=== PATIENT | female | born 1980 | race Caucasian/White ===

== ENCOUNTER 2019-01-27 19:18 | Inpatient (IN) | payer OTHER ==
[2019-01-27] MEDS ORDERED: Lactated Ringers 1000 ML Bag* 1,000 ML IV ONE ×2 (19:48→21:36)
--- NOTE | 2019-01-27 19:58 | HP ---
General Information - Reason for Visit IUP at 41 in early active labor with moderate bright red bleeding - General Information Maternal Age: 38 Grav: 1 Para: 0 SAB: 0 IEA: 0 Estimated Due Date: 01/30/19 Determined By: LMP Gestational Age in Weeks/Days: 39-7 Maternal Blood Type and Rh: O Positive - Results this Serology/RPR Result: Non-Reactive Rubella Result: Immune HBsAg Result: Negative HIV Result: Negative GBS Culture Result: Negative Past Medical History Delivery History: See Records Delivery History Comment: Primip Pertinent Past Medical History: See Records Past Medical History Comment: Allergies, food: legumes/bananas - anaphylaxis Pertinent Past Surgical History: None Pertinent Family History: See Records Family History Comment: Father - HTN. , sepsis s/p routine colonoscopy Mother - HTN PGM - , heart disease PGF - HTN, asthma. , [place] MGM - , lung cancer MGF - , lung cancer - Antepartal Records Antepartal Records: Reviewed, Complicated by: - GDM - A1 Review of Systems Constitutional: Uncomfortable CV Complaint: No Respiratory: Shortness of Breath: No Gastrointestinal: No Nausea/Vomiting, Normal Bowel Movement Genitourinary: Bleeding Musculoskeletal: No Complaint, No Epigastric Pain Neurological: No Headache, No Visual Changes Movement: Normal Exam Allergies/Adverse Reactions: Allergies LEGUMES Allergy (Severe, Uncoded 12/08/12 17:09) Anaphylatic Shock BP 131/75 HR 63 T 98.4 RR 18 SpO2 99% on RA - Measurements Height: 5 ft 4 in Weight: 141 lb Body Mass Index (BMI): 24.2 Pre- Weight: 110 lb - Exam Breast: Breast Exam Deferred CVA: No CVA Tenderness Extremities: No Edema Heart: Normal Rhythm/Heart Sounds HEENT: No Significant Findings Lungs: Clear Bilaterally Rectal: Rectal Exam Deferred Reflexes: DTR 2+ Thyroid: No Thyromegaly - Abdominal Exam Abdomen Exam: Non-Tender - between UCs, Fundal Height Consistent with Dates - Ultrasound/Biophysical Profile Ultrasound Status: Not Done Targeted Exam Findings See L&D Outpatient Visit Provider Note for Findings: N/A Estimated Weight: EFW 7.5 lbs by Cristina Cervical Exam: 1cm Effacement: 90% Station: -1 Presenting Part: Vertex Membrane Status: Intact Sterile Speculum Exam: Not done Bleeding/Discharge: Moderate bleeding EFM Findings - External Monitor Findings Baseline Heart Rate: 125 External Monitor Findings: Accelerations Present, No Pattern of Variable or Late Decelerations - isolated variable down to 90bpm. Recovered. Moderate variability maintained, Variability Moderate, Baseline Stable External Monitor Findings Comment: Cat II FHT, doubt metabolic acidemia. Bears close watching Contractions: Regular Contraction Frequency: q 3 min Assessment/Plan - Assessment IUP at 39-4/7 in early active labor Cat II FHT Moderate vaginal bleeding GDM - A1 - Plan Plan Comment: P: Admit. Pt agrees to IV placement and fluids. Close monitoring of maternal/ status in presence of bleeding. Dr. Garcia aware of pt presence and condition. - Date/Time of Admission Date of Admission: 01/27/19 Time of Admission: 19:55
[2019-01-27] MEDS ORDERED: Lactated Ringers 1000 ML Bag* 1,000 ML IV SCH ×3 (20:00→22:00)
[2019-01-27 20:31] LABS: ABS Lymphocytes 1.8 10^3/ul (1.0-4.8); ABS Monocytes 0.8 10^3/ul (0-0.8); ABS Neutrophils 11.1 10^3/ul (1.5-7.7); Eosinophil % 0.1 %; Hematocrit 35 % (35-47); Hemoglobin 11.8 g/dL (12.0-16.0); Lymphocyte % 13.4 %; Mean Corpuscular HGB Conc 34 g/dL (31-36); Mean Corpuscular Hemoglobin 30 pg (27-31); Mean Corpuscular Volume 89 fL (80-97); Mean Platelet Volume 9.2 fL (7.4-10.4); Platelet Count 215 10^3/uL (150-450); Red Blood Count 3.88 10^6 /uL (3.70-4.87); Red Cell Distribution Width 15 % (10.5-15); White Blood Count 13.8 10^3/uL (3.5-10.8)
[2019-01-27 20:39] LABS: Platelet Count 215 10^3/ul (150-450)
[2019-01-27] MEDS ORDERED: OBEPIDURAL* 250 ML EPIDURAL ONE (20:41)
--- NOTE | 2019-01-27 20:43 | PN ---
Progress Note - Progress Note Date of Service: 01/27/19 Note: Quick note: Pt much more uncomfortable. Requesting epidural analgesia. Labs sent. IV fluid bolus running. VE: 3cm/90%/vtx -1, intact BOW. FHT 125bpm. Moderate variability. +Accels. No decels. Impression: Cat I FHT. Anesthesia paged for consult
[2019-01-27 20:44] LABS: Activated Partial Thrombo Time 30.1 seconds (26.0-36.3); Fibrinogen 414.7 mg/dL (110.8-404.3); INR 0.85 (0.82-1.09)
[2019-01-27 21:02] LABS: Schistocytes ABSENT
[2019-01-27] MEDS ORDERED: Lidocaine 2% EPI 1:200000 MPF*10-20 ML VIAL ONE (21:26)
[2019-01-27] MEDS ORDERED: Phenylephrine 40 MCG/ML SYRINGE IV PUSH PRN ×2 (21:36)
[2019-01-27] MEDS ORDERED: Sodium Citrate/Citric Acid* 15 ML UDC PO PRN (21:36)
[2019-01-27] MEDS ORDERED: Lactated Ringers 1000 ML Bag* 500 ML IV PRN ×2 (21:36)
[2019-01-27] MEDS ORDERED: Famotidine TAB* 20 MG PO PRN (21:36)
[2019-01-27] MEDS ORDERED: OBEPIDURAL* 250 ML EPIDURAL SCH (22:00)
--- NOTE | 2019-01-27 23:57 | PN ---
Progress Note - Progress Note Date of Service: 01/27/19 Note: S: Paged to bedside to review FHT. Pt very comfortable with epidural. Currently in a left lateral position, O2 by mask and increased IV fluids running O: BP 107/65 HR 58bpm FHT baseline 135bpm. Moderate variability. Variable decel down to 70bpm at 2320 and again at 2324 then recovered to baseline x several contractions. At 2336 isolated late decel noted. Then FHT maintained through several contractions. UCs q 3-4, moderate bloody show present with exam. Small clot noted on glove < 1cm x 0.5cm VE: 4-5/100%/vtx -1, intact BOW A: IUP at 39-4/7 in labor Category II FHT P: Continue O2 by mask, IV fluids and close monitoring of maternal/ status. Consider amniotomy and MD consult PRN persistent Category II FHT
--- NOTE | 2019-01-28 00:21 | PN ---
Progress Note - Progress Note Date of Service: 01/28/19 Note: Quick Note Category II tracing persists with a combination of deep variables and occasional lates. AROM to bloody fluid. Recommend pLTCS. Pt and FOB agree. Dr. Garcia from OB, Dr. Duff from anesthesia, and Dr. Arriaga from neonatology paged for case.
[2019-01-28] MEDS ORDERED: Chloroprocaine 3%* 20 ML VIAL ONE (00:23)
[2019-01-28] MEDS ORDERED: Lidocaine 2% EPI 1:200000 MPF*10-20 ML VIAL ONE (00:23)
[2019-01-28] MEDS ORDERED: OXYTOCIN* 10 UNITS/ML 1 ML VIAL ONE (00:23)
[2019-01-28] MEDS ORDERED: Phenylephrine 40 MCG/ML SYRINGE ONE (00:23)
[2019-01-28] MEDS ORDERED: Morphine PF AMP (0.5MG/ML)* 5 MG/10 ML AMP ONE (00:23)
[2019-01-28] MEDS ORDERED: fentaNYL* 50 MCG/ML 2 ML VIAL (100 MCG VIAL) ONE ×2 (00:23→00:48)
[2019-01-28] MEDS ORDERED: ceFOXitin 2 GM IVPREMIX* 2 GM/50 ML BAG IVPB ONE (00:33)
[2019-01-28] MEDS ORDERED: ceFOXitin 2 GM IVPREMIX* 2 GM/50 ML BAG ONE (00:33)
[2019-01-28] MEDS ORDERED: Naloxone* 0.4 MG/ML 1 ML VIAL IV PRN ×2 (01:08→01:09)
[2019-01-28] MEDS ORDERED: Ondansetron INJ* 2 MG/ML VIAL IV PRN ×2 (01:08→01:09)
[2019-01-28] MEDS ORDERED: Scopolamine 1.5 mg* PATCH TRANSDERM PRN (01:09)
[2019-01-28] MEDS ORDERED: oxyCODONE/Acetamin 5/325 MG* TAB PO PRN ×5 (01:09→17:00)
[2019-01-28] MEDS ORDERED: diPHENhydraMINE IV* 50 MG/ML 1 ml VIAL (BENADRYL) IV PRN (01:09)
[2019-01-28] MEDS ORDERED: Witch Hazel PAD* JAR TOPICAL PRN (01:28)
[2019-01-28] MEDS ORDERED: Dibucaine 1% 28.35 GM TUBE PR PRN (01:28)
[2019-01-28] MEDS ORDERED: Glycerin ADULT SUPP PR PRN (01:28)
[2019-01-28] MEDS ORDERED: Lactated Ringers 1000 ML Bag* 1,000 ML IV SCH (02:00)
[2019-01-28] MEDS: fentaNYL* 50 MCG/ML 2 ML VIAL (100 MCG VIAL) IV PRN ×2 (02:02→02:16)
--- NOTE | 2019-01-28 07:17 | OP ---
OPERATIVE REPORT: DATE OF OPERATION: 01/28/19 DATE OF : 84 SURGEON: Dr. Garcia. HOMICIDE [employer]: Liset Lam CNM ANESTHESIA: Epidural. PRE-OP DIAGNOSIS: in labor at 39 weeks with a category II tracing and vaginal bleeding in labor. POST-OP DIAGNOSIS: in labor at 39 weeks with a category II tracing and vaginal bleeding in labor, possible placental abruption. OPERATIVE PROCEDURE: Primary low transverse section. ESTIMATED BLOOD LOSS: 500 cc. SPECIMEN SENT TO PATHOLOGY: Cord blood. FLUIDS: She received 1300 cc of IV crystalloid fluid. URINE OUTPUT: Clear. FINDINGS: Delivery of a viable female with a weight of 6 pounds 9 ounces, with Apgars of 9 an d 9. The placenta was grossly intact with a large clot on its surface. Uterus, adnexa, bowel, and b ladder were all within normal limits. There were no complications. DESCRIPTION OF PROCEDURE: The patient was taken to the operating room where she was identified. She was placed on the operating table where an epidural anesthetic was obtained without difficulty. She was in the supine position with a leftward tilt, prepped and draped in a normal sterile fashion. A Pfannenstiel skin incision was made with a knife and carried through to the underlying layer of fasci a. The fascia was nicked in the midline and extended laterally with curved Sorensen scissors. The fascia was then grasped superiorly and inferiorly with Verónica clamps and dissected off sharply from the rec tus muscle. The rectus muscle was in the midline bluntly. The peritoneum was identified, grasped with pickups, and entered sharply with Metzenbaum scissors and extended superiorly and inferi garret sharply. A bladder blade was inserted into the patient's abdomen. A bladder flap was created u sing Metzenbaum scissors, over which the bladder blade was then reinserted. A low transverse uterine incision was made with a knife, extended laterally with bandage scissors. The 's head was the n grasped and delivered atraumatically. The rest of the infant's body was then delivered. The cord was clamped and cut, and the infant was handed off to waiting boat tester. Cord bloods were obtaine d. The placenta was removed manually. The uterus was then exteriorized and cleared of all clot and debris using moist laparotomy sponges. The uterine incision was then closed using 0 Polysorb suture i n a running locked fashion with a second imbricating layer of 0 Polysorb suture with good hemostasis noted. The uterus was then returned to the patient's abdomen. The gutters were then cleared of all clot and debris using moist laparotomy sponges. The peritoneum was then closed using 3-0 Polysorb moore ture in a running fashion. The fascia was closed using 0 Polysorb suture in a running fashion and th e skin was closed with 4- 0 Monocryl subcuticular stitch. The patient tolerated the procedure well. Sponge, lap, and needle counts were correct x2. She was then transferred to the recovery room area in stable condition. [id number]/[facility] #: [id number]
[2019-01-28] MEDS: Docusate CAP* 100 MG PO SCH ×3 (08:08→21:10)
[2019-01-28] MEDS: Simethicone TAB* 80 MG TAB.CHEW PO SCH ×4 (08:08→21:10)
[2019-01-28] MEDS: Ketorolac INJ* 30 MG/ML 1 ML VIAL IV PRN ×3 (08:08→23:12)
[2019-01-28] MEDS ORDERED: Zolpidem TAB* 5 MG PO PRN (21:00)
[2019-01-29] MEDS: Ibuprofen TAB* 600 MG PO PRN ×3 (05:20→17:27)
[2019-01-29 06:18] LABS: ABS Lymphocytes 1.6 10^3/ul (1.0-4.8); ABS Monocytes 0.9 10^3/ul (0-0.8); ABS Neutrophils 9.5 10^3/ul (1.5-7.7); Eosinophil % 0.1 %; Hematocrit 29 % (35-47); Hemoglobin 9.7 g/dL (12.0-16.0); Lymphocyte % 13.1 %; Mean Corpuscular HGB Conc 33 g/dL (31-36); Mean Corpuscular Hemoglobin 31 pg (27-31); Mean Corpuscular Volume 91 fL (80-97); Mean Platelet Volume 8.7 fL (7.4-10.4); Platelet Count 181 10^3/uL (150-450); Red Blood Count 3.19 10^6 /uL (3.70-4.87); Red Cell Distribution Width 16 % (10.5-15); White Blood Count 11.9 10^3/uL (3.5-10.8)
[2019-01-29] MEDS: Docusate CAP* 100 MG PO SCH ×3 (09:52→19:58)
[2019-01-29] MEDS: Ferrous Gluconate TAB* 324 MG TAB PO SCH ×2 (09:52→19:58)
[2019-01-29] MEDS: Simethicone TAB* 80 MG TAB.CHEW PO SCH ×4 (09:52→19:57)
[2019-01-29] MEDS: Acetaminophen TAB* 325 MG PO PRN (19:57)
[2019-01-30] MEDS: Ibuprofen TAB* 600 MG PO PRN ×4 (00:09→18:56)
[2019-01-30] MEDS: Acetaminophen TAB* 325 MG PO PRN ×4 (02:12→20:22)
[2019-01-30] MEDS: Ferrous Gluconate TAB* 324 MG TAB PO SCH ×2 (08:41→20:22)
[2019-01-30] MEDS: Simethicone TAB* 80 MG TAB.CHEW PO SCH ×4 (08:41→20:22)
[2019-01-30] MEDS: Docusate CAP* 100 MG PO SCH ×3 (08:41→20:22)
[2019-01-31] MEDS: Acetaminophen TAB* 325 MG PO PRN ×3 (00:50→10:58)
[2019-01-31] MEDS: Ibuprofen TAB* 600 MG PO PRN ×2 (00:51→06:54)
[2019-01-31] MEDS ORDERED: Scopolamine PATCH Remove* 1 NOTE MISC PATCH OFF PRN (01:11)
[2019-01-31 08:39] VITALS: BP 116/77
[2019-01-31] MEDS: Simethicone TAB* 80 MG TAB.CHEW PO SCH (09:11)
[2019-01-31] MEDS: Docusate CAP* 100 MG PO SCH (09:11)
[2019-01-31] MEDS: Ferrous Gluconate TAB* 324 MG TAB PO SCH (09:11)
== END 2019-01-31 11:53 | disposition home or self-care (01) | DRG 540 ==
LOC: MCHOBOUT 19:18 → MCHOB 19:52
PROVIDERS: ADMIT Midwife; ATTEND Midwife
PROC: 10907ZC Drainage of Amniotic Fluid, Therapeutic from Products of Conception, Via Natural or Artificial Opening (ICD-10-PCS; 2019-01-28)
PROC: 10D00Z1 Extraction of Products of Conception, Low, Open Approach (ICD-10-PCS; principal; 2019-01-28 00:32)
DX: O45.93 Premature separation of placenta, unspecified, third trimester (principal); O76 Abnormality in fetal heart rate and rhythm complicating labor and delivery; O77.0 Labor and delivery complicated by meconium in amniotic fluid; O24.429 Gestational diabetes mellitus in childbirth, unspecified control; O90.81 Anemia of the puerperium; D64.9 Anemia, unspecified; Z3A.39 39 weeks gestation of pregnancy; Z37.0 Single live birth
CPT/HCPCS: 36415; 85025; 85049; 85362; 85384; 85610; 85730; 86850; 86900; 86901; A9270-GY; J0694; J1885; J2400; J2590; J3010